=== PATIENT | female | born 1950 | race Caucasian/White ===

== ENCOUNTER 2018-02-24 09:44 | Outpatient (REF) | payer MEDICARE, BC, SELFPAY ==
[2018-02-24 14:35] LABS: HCT 36.2 % (36.0-46.0); HGB 11.6 g/dL (12.0-15.5); Mean Corpuscular Hemoglobin 30.2 pg (27.0-33.0); Mean Corpuscular Volume 94.3 fL (80-95); Mean Platelet Volume 13.5 fL (8.0-11.0); Platelet Count 218 x1000/uL (130-400); RBC 3.84 m/cumm (4.00-5.20); RBC Distribution Width 13.3 % (11.7-14.6); White Blood Cell Count 4.82 k/cumm (4.4-10.8)
[2018-02-24 14:45] LABS: Iron 40 ug/dL (50-175); Total Iron Binding Capacity 412 ug/dL (250-450); Transferrin Sat 10 % (15-50)
[2018-02-24 14:47] LABS: ALT 27 U/L (12-78); AST 25 U/L (15-37); Albumin 3.8 g/dL (3.4-5.0); Alkaline Phosphatase 88 U/L (46-116); Anion Gap 9.9 mmol/L (3-11); BUN 14 mg/dL (7-18); Bilirubin, Total 0.5 mg/dL (0.2-1.0); CO2 28.1 mmol/L (21.0-32.0); CREATININE 0.94 mg/dL (0.55-1.02); Calcium 9.4 mg/dL (8.5-10.1); Chloride 104 mmol/L (98-107); Estimated GFR 59.58 (mL/min/1.73m2); Glucose 91 mg/dL (70-100); Potassium 3.9 mmol/L (3.5-5.1); Sodium 142 mmol/L (136-145); TSH 1.57 uIU/mL (0.358-3.74); Total Protein 7.5 g/dL (6.4-8.2)
[2018-02-24 15:29] LABS: ESR 33 MM/HR (0-30)
[2018-02-25 13:45] LABS: ANA Interpretation Negative (NEGAT)
== END 2018-02-24 10:04 ==
LOC: NCHCN 09:44
PROVIDERS: PCP Internal Medicine; Visit Provider Internal Medicine
DX: D64.9 Anemia, unspecified (principal); R53.83 Other fatigue; R13.13 Dysphagia, pharyngeal phase; M19.041 Primary osteoarthritis, right hand; M19.042 Primary osteoarthritis, left hand; I71.2 Thoracic aortic aneurysm, without rupture
CPT/HCPCS: 80053; 85027; 85652; 83540; 83550; 84443; 86038

== ENCOUNTER 2018-03-26 13:33 | Outpatient (CLI) | payer MEDICARE, BC, SELFPAY ==
--- NOTE | 2018-03-26 13:32 | DI.RAD_ITS ---
SYMPTOM/DIAGNOSIS: LEFT KNEE PAIN LEFT KNEE: 03/26/18 Three views were obtained. There is medial subluxation of the femur on the tibia. There appears to be narrowing of the patellofemoral cartilaginous joint space. Mild hypertrophic spurring of the bones of the knee noted. CONCLUSION: Degenerative changes as described above.
== END 2018-03-26 13:53 ==
PROVIDERS: PCP Internal Medicine; Visit Provider Student in an Organized Health Care Education/Training Program
DX: M25.562 Pain in left knee (principal); M17.11 Unilateral primary osteoarthritis, right knee; M17.12 Unilateral primary osteoarthritis, left knee
CPT/HCPCS: 20610; 73562; 99213; J7325

== ENCOUNTER 2018-04-11 11:34 | Outpatient (REF) | payer MEDICARE, BC, SELFPAY ==
[2018-04-11 13:07] LABS: Iron 70 ug/dL (50-175); Total Iron Binding Capacity 318 ug/dL (250-450); Transferrin Sat 22 % (15-50)
== END 2018-04-11 11:54 ==
LOC: NCHCN 11:34
PROVIDERS: PCP Internal Medicine; Visit Provider Internal Medicine
DX: E61.1 Iron deficiency (principal)
CPT/HCPCS: 83540; 83550

== ENCOUNTER 2018-08-26 12:20 | Outpatient (REF) | payer MEDICARE, BC, SELFPAY ==
[2018-08-26 22:13] LABS: Iron 145 ug/dL (50-175); Total Iron Binding Capacity 296 ug/dL (250-450); Transferrin Sat 49 % (15-50)
[2018-08-26 22:29] LABS: Ferritin 21 ng/mL (8-388)
== END 2018-08-26 12:40 ==
LOC: NCHCN 12:20
PROVIDERS: PCP Internal Medicine; Visit Provider Internal Medicine
DX: E61.1 Iron deficiency (principal); R53.83 Other fatigue; M25.519 Pain in unspecified shoulder; I71.2 Thoracic aortic aneurysm, without rupture; Z63.4 Disappearance and death of family member
CPT/HCPCS: 85027; 82728; 83540; 83550

== ENCOUNTER 2018-08-27 22:57 | Outpatient (REF) | payer MEDICARE, BC, SELFPAY ==
[2018-08-27 21:19] LABS: HCT 33.3 % (36.0-46.0); Mean Corpuscular Hemoglobin 31.5 pg (27.0-33.0); Mean Corpuscular Volume 95.4 fL (80-95); Mean Platelet Volume 13.6 fL (8.0-11.0); Platelet Count 219 x1000/uL (130-400); RBC 3.49 m/cumm (4.00-5.20); RBC Distribution Width 12.1 % (11.7-14.6); White Blood Cell Count 4.92 k/cumm (4.4-10.8)
== END 2018-08-27 23:17 ==
LOC: NCHCN 22:57
PROVIDERS: PCP Internal Medicine; Visit Provider Internal Medicine
DX: R53.83 Other fatigue (principal); E61.1 Iron deficiency; I71.2 Thoracic aortic aneurysm, without rupture; M25.519 Pain in unspecified shoulder
CPT/HCPCS: 85027

== ENCOUNTER 2018-09-03 13:18 | Outpatient (CLI) | payer MEDICARE, BC, SELFPAY ==
--- NOTE | 2018-09-03 13:14 | DI.RAD_ITS ---
SYMPTOMS/DIAGNOSIS: RIGHT SHOULDER PAIN RIGHT SHOULDER: Minimal degenerative changes involving the glenohumeral and AC joints are demonstrated. There is no evidence of a fracture or dislocation.
== END 2018-09-03 13:38 ==
PROVIDERS: PCP Internal Medicine; Referring Provider Internal Medicine; Visit Provider Student in an Organized Health Care Education/Training Program
DX: M25.511 Pain in right shoulder; M17.11 Unilateral primary osteoarthritis, right knee
CPT/HCPCS: 20610; 99213; 99214; 73030; J1040

== ENCOUNTER → 2018-09-24 13:00 | Outpatient (BNVA) | payer MEDICARE, BC, SELFPAY | PROVIDERS: PCP Internal Medicine; Referring Provider Internal Medicine; Visit Provider Student in an Organized Health Care Education/Training Program | DX: M25.561 Pain in right knee (principal); M25.511 Pain in right shoulder; M75.81 Other shoulder lesions, right shoulder; M17.11 Unilateral primary osteoarthritis, right knee | CPT/HCPCS: 20610; 99213; J1040; J7325 ==

== ENCOUNTER 2019-02-26 12:30 | Outpatient (REF) | payer MEDICARE, BC, SELFPAY ==
[2019-02-26 22:35] LABS: HCT 35.2 % (36.0-46.0); HGB 11.5 g/dL (12.0-15.5); Mean Corp. HGB Concentration 32.7 g/dL (32.0-36.0); Mean Corpuscular Hemoglobin 31.3 pg (27.0-33.0); Mean Corpuscular Volume 95.7 fL (80-95); Mean Platelet Volume 13.8 fL (8.0-11.0); Platelet Count 238 x1000/uL (130-400); RBC 3.68 m/cumm (4.00-5.20); RBC Distribution Width 12.6 % (11.7-14.6)
[2019-02-26 23:24] LABS: Iron 53 ug/dL (50-175); Total Iron Binding Capacity 307 ug/dL (250-450); Transferrin Sat 17 % (15-50)
[2019-02-26 23:30] LABS: Ferritin 24 ng/mL (8-388); TSH 1.28 uIU/mL (0.36-3.74); Vitamin B12 348 pg/mL (193-986)
[2019-02-27 00:16] LABS: Uric Acid 4.2 mg/dL (2.6-6.0)
[2019-03-02 12:44] LABS: Albumin 61.4 % (55.8-66.1); Total Protein 6.7 g/dl (6.3-8.2)
[2019-03-02 15:30] LABS: ANA Interpretation Negative (NEGAT)
== END 2019-02-26 12:50 ==
LOC: NCHCN 12:30
PROVIDERS: PCP Internal Medicine; Visit Provider Internal Medicine
DX: D64.9 Anemia, unspecified (principal); E61.1 Iron deficiency; K50.90 Crohn's disease, unspecified, without complications; M25.561 Pain in right knee; G62.9 Polyneuropathy, unspecified; M79.675 Pain in left toe(s)
CPT/HCPCS: 85027; 82607; 82728; 83540; 83550; 84165; 84443; 84550; 86038

== ENCOUNTER → 2019-03-30 12:58 | Outpatient (BNVA) | payer MEDICARE, BC, SELFPAY | PROVIDERS: PCP Internal Medicine; Referring Provider Internal Medicine; Visit Provider Student in an Organized Health Care Education/Training Program | DX: M25.562 Pain in left knee (principal); M25.511 Pain in right shoulder; M75.81 Other shoulder lesions, right shoulder; M17.11 Unilateral primary osteoarthritis, right knee | CPT/HCPCS: 20610; 99213; J7325 ==

== ENCOUNTER → 2019-12-28 13:30 | Outpatient (BNVA) | payer MEDICARE, BC, SELFPAY | PROVIDERS: PCP Internal Medicine; Referring Provider Internal Medicine; Visit Provider Student in an Organized Health Care Education/Training Program | DX: M25.562 Pain in left knee (principal); M25.511 Pain in right shoulder; M75.81 Other shoulder lesions, right shoulder; M17.11 Unilateral primary osteoarthritis, right knee | CPT/HCPCS: 20610; 99213; J7325 ==

== ENCOUNTER 2020-03-08 14:54 | Outpatient (REF) | payer MEDICARE, BC, SELFPAY ==
[2020-03-08 20:58] LABS: Iron 67 ug/dL (50-170); Total Iron Binding Capacity 312 ug/dL (250-450); Transferrin Sat 21 % (15-50)
[2020-03-08 21:24] LABS: HCT 38.1 % (36.0-46.0); HGB 12.7 g/dL (11.2-15.7); MCH 31.3 pg (27.0-33.0); MCHC 33.3 % (32.0-36.0); MCV 93.8 fL (80-95); MPV 13.7 fL (8.0-11.0); Platelet Count 205 10^3/uL (130-400); RBC 4.06 10^6/uL (3.93-5.22); RDW 12.7 % (11.7-14.6); RDW-SD 43.7 fL; WBC 5.06 10^3/uL (4.4-10.8)
== END 2020-03-08 15:14 ==
LOC: NCHCN 14:54
PROVIDERS: PCP Internal Medicine; Visit Provider Internal Medicine
DX: E61.1 Iron deficiency (principal); D64.9 Anemia, unspecified; Z00.00 Encounter for general adult medical examination without abnormal findings
CPT/HCPCS: 85027; 83540; 83550

== ENCOUNTER 2021-03-16 13:39 | Outpatient (REF) | payer MEDICARE, BC, SELFPAY ==
[2021-03-16 21:21] LABS: HGB 10.6 g/dL (11.2-15.7); MCH 30.5 pg (27.0-33.0); MCHC 31.2 % (32.0-36.0); MCV 97.7 fL (80-95); MPV 12.9 fL (8.0-11.0); Platelet Count 278 10^3/uL (130-400); RBC 3.48 10^6/uL (3.93-5.22); RDW 11.7 % (11.7-14.6); RDW-SD 41.7 fL; WBC 5.82 10^3/uL (4.4-10.8)
[2021-03-16 21:29] LABS: Iron 125 ug/dL (50-170); Total Iron Binding Capacity 343 ug/dL (250-450); Transferrin Sat 36 % (15-50)
== END 2021-03-16 13:40 | disposition home or self-care (01) ==
LOC: NCHCN 13:39
PROVIDERS: PCP Internal Medicine; Visit Provider Internal Medicine
DX: E61.1 Iron deficiency (principal); D64.9 Anemia, unspecified
CPT/HCPCS: 85027; 83540; 83550

== ENCOUNTER 2021-10-11 19:21 | Outpatient (REF) | payer MEDICARE, BC, SELFPAY ==
[2021-10-11 15:59] LABS: Iron 85 ug/dL (50-170); Total Iron Binding Capacity 339 ug/dL (250-450); Transferrin Sat 25 % (15-50)
== END 2021-10-11 19:22 | disposition home or self-care (01) ==
LOC: NCHCN 19:21
PROVIDERS: PCP Internal Medicine; Visit Provider Family Medicine
DX: E61.1 Iron deficiency (principal)
CPT/HCPCS: 83540; 83550

== ENCOUNTER → 2021-12-07 08:30 | Outpatient (BNVA) | payer MEDICARE, BC, SELFPAY | PROVIDERS: PCP Internal Medicine; Referring Provider Internal Medicine; Visit Provider Physician Assistant | DX: M17.11 Unilateral primary osteoarthritis, right knee (principal); M17.12 Unilateral primary osteoarthritis, left knee | CPT/HCPCS: 20610; J7325 ==

== ENCOUNTER 2022-04-02 10:07 | Outpatient (REF) | payer MEDICARE, BC, SELFPAY ==
[2022-04-02 15:18] LABS: Estimated GFR 60.61 (mL/min/1.73m2)
== END 2022-04-02 10:08 | disposition home or self-care (01) ==
LOC: NCHCN 10:07
PROVIDERS: PCP Internal Medicine; Visit Provider Internal Medicine
DX: I77.810 Thoracic aortic ectasia (principal)
CPT/HCPCS: 82565

== ENCOUNTER 2023-03-11 17:57 | Outpatient (CLI) | payer MEDICARE, BC, SELFPAY ==
--- NOTE | 2023-03-11 15:15 | DI.RAD_ITS ---
Exam(s) XR KNEE RT 3V AP,LAT,JONI EXAM: XR KNEE RT 3V AP,LAT,JONI CLINICAL HISTORY: RIGHT KNEE PAIN. TECHNIQUE: 2D digital imaging was performed of the right knee. Three views obtained. AP, lateral an d PA tunnel views were obtained. COMPARISON: CR RIGHT KNEE 3 VIEWS from 01/10/2016 FINDINGS: BONES: No acute fracture is present. No bony destructive lesion is seen. There is an enthesophyte on the anterior patella. JOINTS: The knee is normally aligned. There are moderate degenerative changes seen in the femoral tib ial joint with joint space narrowing and osteophytes, particularly laterally. SOFT TISSUE: Normal. IMPRESSION: Moderate degenerative changes of the right knee particularly affecting the lateral femoral tibial femi nt. DATA REPOSITORY: RADIATION DOSE DELIVERED:
--- NOTE | 2023-03-11 15:15 | DI.RAD_ITS ---
Exam(s) XR KNEE LT 3V AP,LAT,JONI EXAM: XR KNEE LT 3V AP,LAT,JONI CLINICAL HISTORY: LEFT KNEE PAIN. TECHNIQUE: 2D digital imaging was performed of the left knee. Three images were obtained. AP, late ral and PA tunnel views were obtained. COMPARISON: CR XR knee LT 3V AP,lat,joni from 03/26/2018 FINDINGS: BONES: No acute fracture is present. No bony destructive lesion is seen. JOINTS: The knee is normally aligned. Moderately severe degenerative changes are seen in the left kne e characterized by joint space narrowing and osteophytes. The findings are most marked in the latera l femoral tibial and patellofemoral joints. There is a small joint effusion. SOFT TISSUE: Normal. IMPRESSION: Moderately severe degenerative changes of the knee. DATA REPOSITORY: RADIATION DOSE DELIVERED:
== END 2023-03-11 17:58 | disposition home or self-care (01) ==
LOC: DIORS 18:01
PROVIDERS: PCP Family Medicine; Referring Provider Family Medicine
DX: M17.12 Unilateral primary osteoarthritis, left knee (principal); M17.11 Unilateral primary osteoarthritis, right knee
CPT/HCPCS: 20610; 73562; J1040

== ENCOUNTER 2023-05-03 11:55 | Outpatient (CLI) | payer MEDICARE, BC, SELFPAY ==
[2023-05-03 14:56] LABS: HCT 37.9 % (36.0-46.0); HGB 12.7 g/dL (11.2-15.7); MCH 31.1 pg (27.0-33.0); MCHC 33.5 % (32.0-36.0); MCV 93 fL (80-95); MPV 11.2 fL (8.0-11.0); Platelet Count 212 10^3/uL (130-400); RBC 4.09 10^6/uL (3.93-5.22); RDW 12.5 % (11.7-14.6); RDW-SD 42.5 fL
[2023-05-03 15:47] LABS: Anion Gap 6.6 mmol/L (3-11); BUN 22 mg/dL (7-18); CO2 28.4 mmol/L (21.0-32.0); Calcium 9.3 mg/dL (8.5-10.1); Chloride 106 mmol/L (98-107); Estimated GFR 60.23 (mL/min/1.73m2); Ferritin 41 ng/mL (8-252); Glucose 91 mg/dL (74-106); Potassium 3.4 mmol/L (3.5-5.1); Sodium 141 mmol/L (136-145)
[2023-05-03 16:16] LABS: Iron 52 ug/dL (50-170); Total Iron Binding Capacity 301 ug/dL (250-450); Transferrin Sat 17 % (15-50)
== END 2023-05-03 11:56 | disposition home or self-care (01) ==
LOC: LBO 11:56
PROVIDERS: PCP Family Medicine; Visit Provider Family Medicine
DX: D64.9 Anemia, unspecified (principal); E66.3 Overweight
CPT/HCPCS: 36415; 80048; 85027; 82728; 83540; 83550

== ENCOUNTER → 2023-09-02 08:11 | Outpatient (BNVA) | payer MEDICARE, BC, SELFPAY | PROVIDERS: PCP Family Medicine; Referring Provider Family Medicine; Visit Provider Student in an Organized Health Care Education/Training Program | DX: M17.11 Unilateral primary osteoarthritis, right knee (principal); M17.12 Unilateral primary osteoarthritis, left knee | CPT/HCPCS: 99213 ==

== ENCOUNTER 2023-12-16 09:11 | Outpatient (CLI) | payer MEDICARE, BC, SELFPAY ==
--- NOTE | 2023-12-16 09:06 | DI.RAD_ITS ---
Exam(s) XR KNEE LT 1V EXAM: XR KNEE LT 1V CLINICAL HISTORY: TKR Planning. TECHNIQUE: 2D digital imaging was performed. Single lateral upright view COMPARISON: CR XR KNEE LT 3V AP,LAT,JONI from 03/11/2023 CR XR STANDING ALIGNMENT from 12/16/2023 FINDINGS: BONES: No acute fracture is present. No bony destructive lesion is seen. JOINTS: The knee is normally aligned. A joint effusion is seen. Spurring at the articular aspect of the patella. SOFT TISSUE: Normal. IMPRESSION: Degenerative changes and joint effusion. DATA REPOSITORY: RADIATION DOSE DELIVERED:
--- NOTE | 2023-12-16 09:06 | DI.RAD_ITS ---
Exam(s) XR STANDING ALIGNMENT EXAM: XR STANDING ALIGNMENT CLINICAL HISTORY: TKR Planning. TECHNIQUE: 2D digital imaging was performed. COMPARISON: CR XR KNEE LT 3V AP,LAT,JONI from 03/11/2023 FINDINGS: 3 views There relatively symmetrical degenerative changes in both knees. Moderate narrowing of the lateral c ompartments and milder narrowing of the medial compartments bilaterally. Hips appear unremarkable. Ankles appear unremarkable. Bone density normal. No osseous lesions. SI joints appear unremarkable. IMPRESSION: As above. DATA REPOSITORY: RADIATION DOSE DELIVERED:
== END 2023-12-16 09:12 | disposition home or self-care (01) ==
LOC: DIORS 09:11
PROVIDERS: PCP Family Medicine; Referring Provider Family Medicine; Visit Provider Student in an Organized Health Care Education/Training Program
DX: M17.12 Unilateral primary osteoarthritis, left knee (principal)
CPT/HCPCS: 99213; 73560; 77073

== ENCOUNTER 2024-02-27 03:00 | Outpatient (CLI) | payer MEDICARE, BC, SELFPAY ==
[2024-02-27 10:49] LABS: HCT 35.5 % (36.0-46.0); HGB 11.6 g/dL (11.2-15.7); MCH 31.3 pg (27.0-33.0); MCHC 32.7 % (32.0-36.0); MCV 96 fL (80-95); MPV 11.5 fL (8.0-11.0); Platelet Count 202 10^3/uL (130-400); RBC 3.71 10^6/uL (3.93-5.22); RDW 12.9 % (11.7-14.6); RDW-SD 45.1 fL; WBC 5.11 10^3/uL (4.4-10.8)
[2024-02-27 10:59] LABS: Anion Gap 7.9 mmol/L (3-11); BUN 17 mg/dL (7-18); CO2 29.1 mmol/L (21.0-32.0); Calcium 9.7 mg/dL (8.5-10.1); Chloride 107 mmol/L (98-107); Estimated GFR 59.86 (mL/min/1.73m2); Glucose 94 mg/dL (74-106); Potassium 3.9 mmol/L (3.5-5.1); Sodium 144 mmol/L (136-145)
== END 2024-02-27 03:01 | disposition home or self-care (01) ==
LOC: LBO 03:00
PROVIDERS: PCP Family Medicine; Visit Provider Student in an Organized Health Care Education/Training Program
DX: M17.12 Unilateral primary osteoarthritis, left knee (principal); Z01.818 Encounter for other preprocedural examination
CPT/HCPCS: 36415; 80048; 85027

== ENCOUNTER 2024-03-11 05:57 | Day surgery (SDC) | payer MEDICARE, BC, SELFPAY ==
--- NOTE | 2024-03-10 18:59 | W.ANESPRE ---
General Info Date of Service Date Performed: 03/11/24 Height: 5 ft 5 in Weight: 82.554 kg Body Mass Index (BMI): 30.2 Surgical Procedure: Operation Date: 03/11/24 07:40 Proposed Procedure Side Surgeon p Knee Total Arthroplasty w/OrthAlign Left Isaias Rivers MD Meds Allergies and Home Medications Allergies Allergy/AdvReac Type Severity Reaction Status Date / Time Penicillins Allergy rash Verified 03/11/24 06:25 tetracycline Allergy rash Verified 03/11/24 06:25 Home Medication ?Medication ?Instructions ?Recorded ascorbic acid (vitamin C) 500 mg 500 mg PO DAILY 03/09/24 capsule cholecalciferol (vitamin D3) 50 2,000 unit PO DAILY 03/09/24 mcg (2,000 unit) capsule (Vitamin D3) ferrous gluconate 325 mg (37 mg 324 mg PO DAILY 03/09/24 iron) tablet acetaminophen 500 mg tablet 1,000 mg (2 x 500 mg) PO Q8H PRN 03/11/24 pain #90 tabs aspirin 81 mg tablet,delayed 81 mg PO BID 30 days #60 tabs 03/11/24 release celecoxib 200 mg capsule (Celebrex) 200 mg PO BID PRN #60 caps 03/11/24 dexamethasone 4 mg tablet 4 mg PO DAILY #2 tabs 03/11/24 docusate sodium 100 mg capsule 100 mg PO BID #30 caps 03/11/24 (Colace) gabapentin 300 mg capsule 300 mg PO QHS #14 caps 03/11/24 oxycodone 5 mg tablet 5 mg PO Q4H PRN #18 tabs 03/11/24 pantoprazole 40 mg tablet,delayed 40 mg PO DAILY #14 tabs 03/11/24 release Current Visit Medications: Current Medications Generic Name Dose Route Start Last Admin Trade Name Freq PRN Reason Stop Dose Admin Acetaminophen 1,000 mg 03/11/24 06:00 Acetaminophen 500 Mg Tab PO 03/11/24 18:00 PREOP ALESSIA Celecoxib 400 mg 03/11/24 06:00 Celecoxib 200 Mg Cap PO 03/11/24 18:00 PREOP ALESSIA Gabapentin 300 mg 03/11/24 06:00 Gabapentin 300 Mg Cap PO 03/11/24 18:00 PREOP ALESSIA Tranexamic Acid/Sodium Chloride 1,000 mg in 100 mls @ 600 mls/hr 03/11/24 06:00 IVPB 10/30/24 18:00 PREOP ALESSIA Ringer's Solution 500 mls @ 80 mls/hr 03/11/24 06:00 IV 04/09/24 23:59 INFUSION ALESSIA Cefazolin Sodium/Dextrose 2 gm in 50 mls @ 100 mls/hr 03/11/24 06:00 Ancef Duplex IVPB 03/11/24 18:00 PREOP ALESSIA IV Miscellaneous Supplies 1 each 03/11/24 06:00 Iv Access IV 04/09/24 23:59 DIRECTED ALESSIA Sodium Chloride 0 ml 03/11/24 06:00 Normal Saline Flush 10 Ml Syr IV 04/09/24 23:59 PRN PRN Sodium Chloride 0 ml 03/11/24 06:00 Normal Saline 10 Ml Vial IJ 04/09/24 23:59 DIRECTED PRN Sterile Water 0 ml 03/11/24 06:00 Water,Injection,Sterile 10 Ml Vial IJ 04/09/24 23:59 DIRECTED PRN PFSH Active Problems Active Problems: Problem Status Onset Code Right rotator cuff tendonitis Chronic M75.81 Primary osteoarthritis of left knee Chronic M17.12 Primary osteoarthritis of right knee Chronic 02/02/16 M17.11 Medical History Medical History Breast CA left AAA (abdominal aortic aneurysm) Hyperlipemia Crohns disease Surgical History Surgical History History of endoscopy History of colonoscopy S/P laparoscopic fundoplication Paraoesophageal hernia repair Ligation of fallopian tube 1983 Tobacco Smoking/Tobacco Use Status: Never Alcohol Alcohol Intake: never Substance Use Substance use type: does not use Vital Signs and Lab Results Vital Signs Most Recent Vital Signs in EMR: Temp Pulse Resp BP Pulse Ox 36.4 C L 72 16 136/85 98 03/11/24 06:05 03/11/24 06:05 03/11/24 06:05 03/11/24 06:05 03/11/24 06:05 Lab Results Blood Type / Crossmatch: No Data to Display Complete Blood Count: White Blood Count 5.11 10^3/uL (4.4-10.8) 02/27/24 10:40 Red Blood Count 3.71 10^6/uL (3.93-5.22) L 02/27/24 10:40 Hemoglobin 11.6 g/dL (11.2-15.7) 02/27/24 10:40 Hematocrit 35.5 % (36.0-46.0) L 02/27/24 10:40 Platelet Count 202 10^3/uL (130-400) 02/27/24 10:40 Complete Metabolic Panel: Sodium 144 mmol/L (136-145) 02/27/24 10:40 Potassium 3.9 mmol/L (3.5-5.1) 02/27/24 10:40 Chloride 107 mmol/L (98-107) 02/27/24 10:40 Carbon Dioxide 29.1 mmol/L (21.0-32.0) 02/27/24 10:40 BUN 17 mg/dL (7-18) 02/27/24 10:40 Creatinine 1.0 mg/dL (0.55-1.02) 02/27/24 10:40 Est GFR (CKD-EPI 2020) 59.86 (mL/min/1.73m2) 02/27/24 10:40 Calcium 9.7 mg/dL (8.5-10.1) 02/27/24 10:40 Glucose 94 mg/dL (74-106) 02/27/24 10:40 Liver Function Panel: No Data to Display Coagulation Panel: No Data to Display Cardiac Panel: No Data to Display Arterial Blood Gas: No Data to Display Venous Blood Gas: No Data to Display Pancreas Panel: No Data to Display Thyroid Panel: No Data to Display Infectious Disease: No Data to Display Blood Cultures: No Data to Display Toxicology Panel: No Data to Display Anesthesia Assessment and Plan Anesthesia History Personal History: No History of Anesthesia Complications Family History: No Family History of Anesthesia Complications Exercise Tolerance Exercise Tolerance: Metabolic Equivalents>4 Cardiac & Pulmonary Exam Cardiac Exam: Normal S1/S2 Heart Sounds Pulmonary Exam: Clear Bilateral Breath Sounds Implantable Cardiac Device Does patient have a Pacemaker or an ICD?: No Airway Exam Known Difficult Airway: No Mallampati Class: 3 Mouth Opening: Narrow (< 3cm) Thyromental Distance: Less than 3 cm Neck Range of Motion: Limited ROM Neck Circumference: Normal Teeth Condition: Normal Dentition ASA Classification ASA Score: ASA 2 Emergency Case?: No NPO Status NPO Status: NPO Clears >2 hours, Solids >8 hours Anesthesia Plan Resuscitation Status: Full Code Anesthesia Technique: Spinal Anesthesia Airway Planned: Natural Airway Pain Management: Surgeon and patient request nerve block Monitors Used: Standard Monitors Preoperative Comments:: 74 yo female for TKA. Sig PMHX: ascending Ao aneurysm. never smoker. s/p lap fundoplasty ECHO: LVEF 58%, no sig valve dz. Previous Anes: - [facility] [place]/[facility] fund, mac 3 grade 2, easy mask. [facility] [place] mast, LMA 4, no issues.
[2024-03-11] VITALS (19 sets, daily range): BP systolic 96–136; BP diastolic 59–85; PULSE 59–99; RESP 12–17; TEMP 36.2–36.5; O2SAT 97–100; BMI 30.2
[2024-03-11] MEDS: Acetaminophen 500 MG TAB 1000 MG PO (06:45)
[2024-03-11] MEDS: Gabapentin 300 MG CAP PO (06:45)
[2024-03-11] MEDS: Lactated Ringers 1,000 ML 80 ML IV (06:45)
[2024-03-11] MEDS: Celecoxib 200 MG CAP 400 MG PO (06:45)
--- NOTE | 2024-03-11 06:52 | PDOC.DSDIS_ITS ---
Date of service: 03/11/24 Time of Service: 06:55 Discharge Plan Disposition Patient Disposition: Home Condition: Good Discharge Details Reason For Visit: Left knee DJD Attending Provider: Isaias Rivers Primary Care Provider: Jeniffer Caruso Home Meds and New Rx's Prescriptions: New celecoxib [Celebrex] 200 mg capsule 200 mg PO BID PRNQty: 60 0RF Rx Instructions: Take one tablet twice daily for pain and inflammation aspirin 81 mg tablet,delayed release (DR/EC) 81 mg PO BID 30 Days Qty: 60 0RF acetaminophen 500 mg tablet 1,000 mg PO Q8H PRN Qty: 90 0RF Rx Instructions: Take two tablets up to every 8 hours as needed for pain pantoprazole 40 mg tablet,delayed release (DR/EC) 40 mg PO DAILY Qty: 14 0RF dexamethasone 4 mg tablet 4 mg PO DAILY Qty: 2 0RF Rx Instructions: Take one tablet once daily for two days docusate sodium [Colace] 100 mg capsule 100 mg PO BID Qty: 30 0RF gabapentin 300 mg capsule 300 mg PO QHS Qty: 14 0RF Rx Instructions: Take one tablet at bedtime oxycodone 5 mg tablet 5 mg PO Q4H PRNQty: 18 0RF Rx Instructions: Take one tablet up to every 4 hours as needed for severe postoperative pain Continued ascorbic acid (vitamin C) 500 mg capsule 500 mg PO DAILY ferrous gluconate 325 mg (37 mg iron) tablet 324 mg PO DAILY cholecalciferol (vitamin D3) [Vitamin D3] 50 mcg (2,000 unit) capsule 2,000 unit PO DAILY Discharge Instructions Additional Instructions: Total Knee Discharge Instructions Activity: The most important activity is to walk and to work on gentle motion (both flexion and extension). You should try to take short walks a few times a day. It is important that when resting you work on keeping the knee straight. Avoid putting a pillow behind the knee as this will encourage flexion. Work on range of motion exercises as provided by Physical Therapy. - Start outpatient physical therapy within 2 weeks. - You should wear the RICKY hose on both legs for 2 weeks. You may remove these at night. You may also use any compression sock in place of the RICKY hose. - Utilize [employer] to review exercises, see videos on exercises and obtain basic information pertaining to your surgery and your recovery. Dressing: Remove the Alejandro wrap by 2 days after your surgery and put on the RICKY stocking given to you from the hospital. Keep the surgical dressing (underneath the ALEJANDRO wrap) in place for at least one week. After the first week it may be removed and replaced with light gauze and tape or nothing. The wound and dressing may get wet after 3 days but avoid soaking the dressing or otherwise it will need to be changed. Many people prefer covering the dressing with cling wrap (saran wrap) to minimize it from getting soaked. If it gets wet, just pat dry. If it starts to peel off then it will need to be changed. Medications: - You should take Tylenol and anti-inflammatory Celebrex as your primary pain control medications. If the Celebrex is too expensive or not covered, please call the office for another alternative (Advil/Ibuprofen or Naproxen/Aleve) - You have been prescribed a stronger pain medication Oxycodone for breakthrough pain, take as needed as prescribed. - You have also been prescribed a stomach acid reduction agent Pantoprozole to help reduce stomach acid and reflux. - You have been prescribed Gabapentin to take at night for restlessness and nerve pain. - You will be taking Aspirin 81mg twice a day for DVT prevention unless instructed otherwise. - You have also been prescribed Decadron to take to control post-operative nausea and pain. You will start this tomorrow. - If you have constipation you should take Colace (which has been prescribed) or Miralax (which is available [id number]). It takes most people 3-4 days to have a bowel movement. Follow-up: 2 weeks If you have any acute concerns or questions, please do not hesitate to contact the office at [phone]. You may contact Dr. Rivers with any questions after hours through the hospital at [phone] or on his cell phone at [phone]. Referrals: Isaias Rivers MD [ [facility] STAFF PHYSICIAN] - Equipment/Supplies: Walker Activity:: Elevate Remove Dressings/Wound Care:: Do Not Remove Shower/Bathe:: Cover Diet:: As Tolerated Discharge Orders Discharge Orders: Discharge Order (Routine); Ordered 03/11/24 Ordered By: Indiana Carroll
--- NOTE | 2024-03-11 07:22 | W.ANESNERVE ---
Nerve Block Single Injection Procedure Date and Time Date Performed: 03/11/24 Procedure Start: 07:22 Location Where Procedure Performed Procedure Location: Day Surgery Unit Reason Performed: Postoperative Analgesia Requesting Provider: Isaias Rivers Timeout Performed Timeout Performed: Yes Monitoring Used ECG, Blood Pressure and SpO2 Sterility Sterility: Hand Hygiene, Surgical Cap, Surgical Mask, Sterile Gloves and Chlorhexidine Sedation Given During Procedure Sedation Given (Indicate Dose Given): Versed IV Dose:: 1 mg Patient Mental Status Patient Mental Status: Sedate with meaningful communication Nerve Block 1st Nerve Block: Laterality: Left Block Type: Adductor Canal Ultrasound Image Saved?: Yes Needle / Catheter Used: 100mm SonoPlex II Local Anesthetic Bolus (Indicate Dose Given): Lidocaine used for local infiltration of skin and Bupivacaine 0.25% Dose:: 7 mL Additives (Indicate Dose Given): None Ultrasound: Sterile probe cover and gel used Nerve Stimulator: Supplement to Ultrasound use and No twitch or parasthesia noted < 0.5 mA Paresthesia: None Procedure Tolerated: No Complications Procedure Outcome: Successful Performed By: Juan Ramon Jane
[2024-03-11] MEDS: ceFAZolin 2 GM/50 ML BAG IVPB (07:30)
[2024-03-11] MEDS: TRANEXAMIC ACID/SOD. CHL. 1,000 MG/100 ML BAG 600 MG IVPB (07:40)
--- NOTE | 2024-03-11 09:04 | ROE_ITS ---
Date of service: 03/11/24 Time of Service: 07:45 Operative Note Operative Note DATE OF PROCEDURE: 03/11/24 PRE-OP DIAGNOSIS: Left Knee Osteoarthritis POST-OP DIAGNOSIS: same PROCEDURE: Left Total Knee Replacement with Intraoperative Navigation SURGEON: Isaias Rivers [employer]: [place] ANESTHESIA TYPE: Spinal Refer to Anesthesia Record ESTIMATED BLOOD LOSS: 150 PATHOLOGY: none sent TOURNIQUET TIME: 0 COMPLICATIONS: None Patient was transported to: PACU Patient's condition: stable Implants: 1. Depuy Attune Cementless Cruciate Retaining Femoral Component, Size 7 2. Depuy Attune Cementless Fixed Bearing Tibial Component, Size 6 3. Depuy Attune 7x6mm CR/FB Poly 4. Depuy Attune Patellar Component, Size 35 Indications: I have seen Yaneth in clinic for symptoms of LEFT knee arthritis, confirmed with radiographic findings. She has exhausted nonoperative methods and was having significant limitations in daily function and desired better function and less pain. I discussed the technical details of a knee replacement. I expla ined the risks of the procedure to include, but not limited to, bleeding, infection, pain, stiffness, fracture, damage to nerves and vessels, damage to muscles and tendons, loosening, need for repeat procedure, blood clot and cardiopulmonary demise. Despite these risks, Yaneth elected to proceed. Findings: There was significant signs of arthritis throughout the knee along with inflammatory synovitis. Procedure Description: Yaneth was greeted in the preoperative holding area where the correct side was identified and marked. The consent was reviewed with the patient and signed. The history and physical was updated. All questions were answered. Preoperative mediacations were administered: Acetaminophen 1000mg, Celebrex 400mg, and Gabapentin 300mg. An adductor canal block was then administered by the anesthesia team in the DSU. She was taken back to the operating room. A spinal anesthestic was then administered. The patient was placed into the supine position on the operating room table. Posts were placed for positioning during the procedure. All bony prominences were well padded. Prophylactic antibiotics in the form of Cefazolin were administered. 1g of Tranxemic Acid was given intravenously within 30 minutes of incision. The left leg was then prepped with Chloraprep and draped in a standard fashion with impervious stockinette. A second prep with Chloraprep was performed prior to application of Iodine impregnated skin protection. A timeout to confirm correct identity, side and site, procedure, allergies, anesthesia, and medical concerns was performed. With the knee in some flexion, a midline incision was made overlying the knee. Full thickness skin flaps were raised once the extensor mechanism was encountered. These were raised medially and laterally. Any bleeding was controlled with electrocautery. Once the extensor mechanism was fully exposed, a medial parapatellar arthrotomy was performed in a flexed position. All bleeding from the arthrotomy and the geniculate arteries was coagulated. A medial subperiosteal peel was performed with electrocautery to the midcoronal plane. The fat pad was removed while keeping the patellar tendon protected. The anterior distal femur synovium was removed for later visualization. The ACL and PCL were resected and the anterior horn of the lateral meniscus was transected. The knee was then flexed with the patella everted. Large osteophytes from the tibia were removed. Large osteophytes from the femur were removed. There was notable inflammatory synovitis seen throughout the knee. An aggressive synovectomy was performed to debride this synovitis. A single starting pin was then placed 1cm anterior to the PCL insertion and the notch in the direction of the femoral head. The OrthoAlign device was applied over the pin. It was oriented to be in line with the epicondylar axis and the trochlear groove. It was then pinned into place. The navigation computer was then turned on and calibrated. The distal femur cut was set at 0.5 degrees valgus and 3.5 degrees flexion. The distal femur cutting guide then was positioned for a 9mm cut. The distal femur was cut with an oscillating saw while protecting the soft tissues. The tibia was then addressed. The OrthoAlign device was placed over the tibial tubercle and medial tibia and secured into position. Once again, OrthoAlign was calibrated and then set for a 1 degree varus cut and 5 degrees of posterior slope. With this locked into position, the cut thickness stylus was used to assess cut thickness. The lateral side, most involved side, was set for a 6mm cut. This was then held in position and pinned into place with 2 additional pins and a cross pin for stability. The medial and lateral collateral ligaments were protected and the cut was performed. With this completed, it was assessed and noted to be of appropriate dimensions. The guide and OrthoAlign was removed. A spacer block was inserted and the knee was brought into extension to ensure enough space was present. . The Orthoalign gap balancing device was then placed in extension. This was used to ensure that the ligaments were properly balanced with up to 2 to 3 mm laxity laterally compared medially. The extension gap was measured as 18mm. The knee was then brought into 90 degrees of flexion and the ligament cutter and presser was once again placed. Under the same amount of force the flexion gap was measured. The Attune specific jig was placed and the flexion gap was made to match the extension gap. The femur was then sized as a size 7. The 4-in-1 cutting guide was the placed. An gini wing was used to confirm appropriate position of the anterior cut to avoid notching. This cutting guide was ensured to be flush on the cut surface and then pinned into place with headed pins. While protecting the soft tissues, quad tendon, and collateral ligaments, the anterior and posterior cuts were performed with a saw. The central two pins were removed and the posterior and anterior chamfers were cut next. The notch-cutting guide was placed. This was pinned to lateralize the femoral component as much as possible while keeping it flush on the cut surface. This was then pinned into position. A saw was used to make the notch cut. A rasp smoothed the cut surfaces. The medial and lateral menisci were removed. A trial femoral component was then inserted, impacted down to the cut surfaces, and the lug holes were drilled. A provisional trial tibial component was placed and the knee was brought through range of motion. There was noted to be excellent extension and flexion. There was no significant instability. The patella was tracking without thumbs. A size 6mm polyethylene component provided the best range of motion and stability with less than 2mm gapping with medial and lateral stress and full extension without significant hyperextension. The tibial cut surface was fully exposed. The tibia was then sized as a 6. The tibia had been previously marked during trialing to correspond to the center of the tibial component to help with rotation. The trial was aligned to this linwood, approximately rotated to the medial 1/3rd of the tibial tubercle. The trial was pinned into place. The tibia was prepared with a reamer and a keel punch and lug holes. The knee was then brought into extension and the patella was measured as 23mm. Using the patellar clamp and cut guide, this was resected to a flat surface with at least 13mm of thickness remaining. The size 35 patella fit the best. This was oriented and then clamped into position. The lugs were drilled. The trial components were removed. The final components were opened on the back table. The periosteal and capsular tissues, especially posteriorly, around the knee were then systematically injected with a periarticular cocktail consisting of 246mg of Ropivacaine, 0.5mg of Epinephrine, 0.08mg of Clonidine, and 30mg of Ketorolac, diluted to 100cc. On the back table, with the implants opened, the cement was mixed. One batch of high viscosity cement was prepared with vacuum assistance. After the cement was ready a small amount was placed on the cut surface of the patella and the patellar button was clamped into position and held. While the cement was hardening, the cementless knee components were placed. Starting with the tibial component, the tibia was subluxed anteriorly and the lug holes of the component were lined up. The tibia was then impacted with an impactor and mallet until the tibial component was in contact with the tibia. Then, the femoral component was inserted. The lug holes were aligned and the component was impacted into position. The final polyethylene component was inserted. The knee was irrigated with Surgiphor Betadine solution. This was allowed to sit in the knee for 3 minutes and then it was thoroughly irrigated out with saline. After the cement had finally cured, approximately 15min, the clamp was removed from the patella and the knee was taken through range of motion. The patella was tracking with a no-thumbs technique. The capsule was then reapproximated with a No. 1 Vicryl at multiple locations. The capsule was finally closed with a No. 2 Stratafix, barbed suture. Deep tissues were then reapproximated with 0 Vicryl and 2-0 Vicryl. The skin was closed with a running 3-0 Monocryl in a subcuticular fashion. This was reinforced with skin glue. A Mepilex silver dressing was applied along with a [id number] KIT wrap. A CryoCuff was applied. Yaneth was transferred to the hospital bed without difficulty an suffering no apparent complication. She has a good prognosis. Physical therapy will start today and without restrictions, weight-bearing as tolerated. Aspirin 81mg BID will be used for DVT prophylaxis.
--- NOTE | 2024-03-11 10:49 | PT.INIE ---
PT Notes Visit Reasons: Left knee DJD Physical Therapy Day Surgery Initial Evaluation Date: 03/11/2024 Referring Doctor: EDENILSON Valdez PT Orders: PT CONSULT: S/P Ortho Surgery Precautions: WBAT on the left LE with AD. Patient Profile/Admitting Diagnosis: Echo is a 74-year-old female with degenerative joint disease of the left knee and is status post left total knee arthroplasty on postoperative day 0. PMHX: Medical History (Updated 12/16/23 @ 09:14 by EDENILSON Salas) AAA (abdominal aortic aneurysm) Hyperlipemia Crohns disease Surgical History Ligation of fallopian tube 1983 Social History/Home Situation: Lives alone in a private home with 5 steps to enter with rails on both sides. Son and 3 nurse friends who will be providing needed help at home as she recovers. Equipment Owned/DME: Standard walker Subjective: Denied headache, chest pain, and lightheadedness throughout session. Does not feel that her left quad is fully awake yet. Hopeful that she could take a front-wheeled walker home. Objective: General Observation: KIT wraps to left LE. Cryocuff to left knee. TEDS to right LE. Mental Status: A and O x 4 Pain: 2/10 in the left hip with weightbearing ROM: Right Lower Extremity: Hip flexion WFL. Hip abduction WFL. Knee flexion WFL. Ankle dorsiflexion WFL. Ankle plantarflexion WFL. Left Lower Extremity: Hip flexion WFL. Hip abduction WFL. Knee flexion 10 degrees to 100 degrees. Ankle dorsiflexion WFL. Ankle plantarflexion WFL. Strength: [ Right Lower Extremity: Hip flexors 5/5. Hip abductors 5/5. Knee flexors 5/5. Knee extensors 5/5. Ankle dorsiflexors 5/5. Ankle plantarflexors 5/5. Left Lower Extremity:Hip flexors 5/5. Hip abductors 5/5. Knee flexors 3-/5. Knee extensors 3-/5. Ankle dorsiflexors 5/5. Ankle plantarflexors 5/5. Sensation: Intact as to pain and light pressure in bilateral lower extremities Bed Mobility/Transfers: Minimal cueing provided for use of B hands as needed for support, movement sequence, AD management, and posture to reduce fall risk and minimize pain report Supine to sit stand by assist Sit to stand conatct guard assist. 1 episode of mild left knee buckling as patient shifted her weight too far forward from sit to stand requiring contact-guard assist from PT to prevent loss of balance. Stand to sit contact guard assist Bed to chair conatct guard assist Gait: Facilitate safe and correct performance of level surface ambulation covering a distance of 150 feet with step through reciprocal heel-toe gait pattern requiring only contact-guard assist and minimal verbal cueing to ensure knee extension and mid stance before advancement of the right LE to minimize buckling on L. Stairs: Guided patient with safe and correct negotiation of 12 x 4 inch steps and 8 x 6 inch steps holding onto bilateral rails with step to gait pattern requiring minimal verbal cueing for limb movement sequence, hand placement, and posture to to reduce fall risk and minimize pain report. Balance: Static Sitting: Normal Dynamic Sitting: Normal Static Standing: Fair Dynamic Standing: Fair Special Tests: Mobility Limitations Standardized Measure [facility]-P[facility] 6 clicks Basic Mobility Inpatient Short Form: Raw Score: 22 CMS Score: 21% deficit Informed Consent/Education: Patient instructed in purpose of PT consult. Packet containing TKA exercise protocol has been given to patient. Education and training on initial set of exercises that can be done at home have been completed with patient. Trained patient with correct performance of exercises below to maximize motor control, joint flexibility, soft tissue extensibility of the L knee musculature: Access Code: [email or web address] URL: [email or web address] Date: 03/11/2023 Prepared by: Emani Dale Exercises - Supine Quad Set - 1 x daily - 7 x weekly - 1 sets - 10 reps - 5 hold - Supine Heel Slide - 1 x daily - 7 x weekly - 1 sets - 10 reps - 5 hold - Supine Ankle Pumps - 1 x daily - 7 x weekly - 1 sets - 10 reps - 5 hold - Small Range Straight Leg Raise - 1 x daily - 7 x weekly - 1 sets - 10 reps - 5 hold - Seated March - 1 x daily - 7 x weekly - 1 sets - 10 reps - 5 hold Assessment: Patient requires the use of a front wheeled walker for all mobility ADL performance to maximize independence and reduce fall risk. Patient presents with clinical signs and symptoms consistent with current/admitting diagnoses that have resulted to mobility limitations, gait instability, generalized weakness, and impairment of motor control as demonstrated by the following impairment level findings: 1. Decreased strength to left knee major muscle groups 2. Impaired standing balance 3. Limitation of joint range of motion in left knee Impairments are contributing to the following functional limitations: 1. Inability to safely ambulate without assistive device 2. Increase completion time for mobility ADL performance 3. Increased fall risk Patient is assessed as a 32643 moderate complexity based on the following: History: 74-year-old female with impairment level findings, functional limitations, and past medical history as indicated above Examination: Demonstrable impairment in strength, balance, and mobility level with underlying impairments and functional limitations as documented above Presentation: Evolving Decision Makin moderate complexity Goals: N/A. PT evaluation and 1-2 treatment sessions only for functional mobility training using recommended AD and for HEP instruction. Plan of Care/Treatment Plan: N/A. PT evaluation and 1-2 treatment session only for functional mobility training using recommended AD and for HEP instruction. DISCHARGE RECOMMENDATIONS: Home when medically cleared by orthopedic surgeon. Recommend outpatient PT services in order to optimize functional mobility outcomes and facilitate return to independent community ambulation without an assistive device. TREATMENT CODE/TIME: 08036 x 25 minutes for 1 unit, 30048 x 32 minutes for 2 units (10:49-11:46). Thank you for the opportunity to participate in the care of this patient. Please sign an return this page within 30 days if you agree with the above POC. Thank you! Physician Signature Date [facility] Thank you for the opportunity to participate in the care of this patient. Emani Dale PT, DPT, CLT [facility] [place], [place]
--- NOTE | 2024-03-11 11:18 | W.ANESPOSTOP ---
Postoperative Evaluation Date, Time and Location Date Performed: 03/11/24 Time Performed: 11:18 Patient Location: Day Surgery Unit Vital Signs Most Recent Imported Vital Signs: Most Recent Vital Signs Temp Pulse Resp BP Pulse Ox 36.2 C L 70 16 116/68 97 03/11/24 10:31 03/11/24 10:31 03/11/24 10:31 03/11/24 10:31 03/11/24 10:31 Pain Score Most Recent Pain Score: Most Recent Pain Score Pain Level 0 03/11/24 10:31 Assessment Mental Status: Awake (Alert & Oriented to Patient Baseline) Airway and Respiratory Function: Patent airway with normal (patient baseline) respiratory exam Cardiovascular Function: Hemodynamically Stable Hydration Status: Adequately Hydrated Nausea & Vomiting: No Nausea or Vomiting Pain: Pt. Denies Any Pain Peripheral Nerve Block: Regional nerve block not resolved at time of post operative discharge
== END 2024-03-11 12:00 | disposition home or self-care (01) ==
PROVIDERS: PCP Family Medicine; Visit Provider Student in an Organized Health Care Education/Training Program
PROC: (CPT 27447; principal; 2024-03-11 07:30)
DX: M17.12 Unilateral primary osteoarthritis, left knee (principal); E78.5 Hyperlipidemia, unspecified; K50.90 Crohn's disease, unspecified, without complications; G89.18 Other acute postprocedural pain
CPT/HCPCS: 20985; 27447; 64447; 76942; 97161; 97530; C1776; J0665; J0690; J1100; J2250; J2401; J2405; J2704

== ENCOUNTER 2024-03-26 11:50 | Outpatient (CLI) | payer MEDICARE, BC, SELFPAY ==
--- NOTE | 2024-03-26 10:00 | DI.RAD_ITS ---
Exam(s) XR KNEE LT 1V XR STANDING ALIGNMENT EXAM: XR STANDING ALIGNMENT CLINICAL HISTORY: 1ST POST OP S/P L TKA. TECHNIQUE: 2D digital imaging was performed. Standing AP views were performed from the pelvis throu gh the ankles. Lateral view of the left knee. COMPARISON: CR XR KNEE RT 3V AP,LAT,JONI from 03/11/2023 CR XR STANDING ALIGNMENT from 12/16/2023 CR XR KNEE LT 1V from 03/26/2024 FINDINGS: BONES: No acute fracture is present. No bony destructive lesion is seen. Leg length discrepancy: No significant overall leg length discrepancy . JOINTS: Knees: A left knee prosthesis has been placed since the prior exam. The alignment is satisfa ctory. Degenerative changes of the lateral femoral tibial joint space of the right knee. The ankle joints are unremarkable. The hip joints are unremarkable. SOFT TISSUE: Normal. IMPRESSION: Degenerative changes lateral femoral tibial joint space of the right knee. Status post placement of left knee prosthesis.. No significant leg length discrepancy. DATA REPOSITORY: RADIATION DOSE DELIVERED:
== END 2024-03-26 11:51 | disposition home or self-care (01) ==
LOC: DIORS 11:53
PROVIDERS: PCP Family Medicine; Referring Provider Family Medicine
DX: Z96.652 Presence of left artificial knee joint (principal); Z47.1 Aftercare following joint replacement surgery
CPT/HCPCS: 99024; 73560; 77073

== ENCOUNTER → 2024-04-27 08:13 | Outpatient (BNVA) | payer MEDICARE, BC, SELFPAY | PROVIDERS: PCP Family Medicine; Visit Provider Student in an Organized Health Care Education/Training Program | DX: Z47.1 Aftercare following joint replacement surgery (principal); Z96.652 Presence of left artificial knee joint | CPT/HCPCS: 99024 ==

== ENCOUNTER 2024-05-12 16:11 | Outpatient (REF) | payer MEDICARE, BC, SELFPAY ==
[2024-05-12 19:46] LABS: Iron 43 ug/dL (50-170); Total Iron Binding Capacity 312 ug/dL (250-450); Transferrin Sat 14 % (15-50)
[2024-05-12 19:55] LABS: Calculated LDL 128 mg/dL (<100); Cholesterol 231 mg/dL (<200); Ferritin 30 ng/mL (8-252); HDL Cholesterol 80 mg/dL (40-60); Triglyceride 116 mg/dL (<150)
[2024-05-12 20:07] LABS: Abs Immature Grans 0.01 10^3/uL (0.0-0.06); Absolute Basophil Count 0.04 10^3/uL (0.0-0.2); Absolute Eosinophil Count 0.17 10^3/uL (0.0-0.7); Absolute Lymphocyte Count 0.72 10^3/uL (1.2-3.4); Absolute Neutrophil Count 3.12 10^3/uL (1.2-6.7); Basophils % 0.9 %; Eosinophils % 3.9 %; HCT 34.7 % (36.0-46.0); Immature Grans % 0.2 %; Lymphocytes % 16.5 %; MCV 99 fL (80-95); Monocytes % 6.9 %; Neutrophils % 71.6 %; Platelet Count 209 10^3/uL (130-400); RBC 3.51 10^6/uL (3.93-5.22); RDW 12.2 % (11.7-14.6); RDW-SD 44.2 fL; WBC 4.36 10^3/uL (4.4-10.8)
[2024-05-12 20:08] LABS: MCH 31.3 pg (27.0-33.0)
[2024-05-12 20:09] LABS: MCHC 31.7 % (32.0-36.0)
[2024-05-14 19:17] LABS: Hepatitis C Ab w Rflx HCV PCR Negative (Negative)
== END 2024-05-12 16:12 | disposition home or self-care (01) ==
LOC: NCHCN 16:11
PROVIDERS: PCP Family Medicine; Visit Provider Family Medicine
DX: D64.9 Anemia, unspecified (principal)
CPT/HCPCS: 80061; 86803; 82728; 83540; 83550; 85025

== ENCOUNTER → 2024-06-08 08:12 | Outpatient (BNVA) | payer MEDICARE, BC, SELFPAY | PROVIDERS: PCP Family Medicine; Referring Provider Family Medicine; Visit Provider Student in an Organized Health Care Education/Training Program | DX: Z47.1 Aftercare following joint replacement surgery (principal); Z96.652 Presence of left artificial knee joint | CPT/HCPCS: 99024 ==

== ENCOUNTER 2025-03-11 11:40 | Outpatient (CLI) | payer MEDICARE, BC, SELFPAY ==
--- NOTE | 2025-03-11 08:34 | DI.RAD_ITS ---
Exam(s) XR KNEE LT 2V AP,LAT EXAM: XR KNEE LT 2V AP,LAT CLINICAL HISTORY: ANNUAL F/U L TKA. TECHNIQUE: 2D digital imaging was performed. COMPARISON: CR XR KNEE LT 1V from 03/26/2024 FINDINGS: Two views Stable position alignment of the components of the knee prosthesis. No fracture or loosening evident. No evidence of osteomyelitis. IMPRESSION: Stable satisfactory appearance of left knee prosthesis DATA REPOSITORY: RADIATION DOSE DELIVERED:
== END 2025-03-11 11:41 | disposition home or self-care (01) ==
LOC: DIORS 11:41
PROVIDERS: PCP Family Medicine; Visit Provider Physician Assistant
DX: Z47.1 Aftercare following joint replacement surgery (principal); Z96.652 Presence of left artificial knee joint
CPT/HCPCS: 99213; 73560